=== PATIENT | female | born 1950 | race Caucasian/White ===

== ENCOUNTER → 2017-08-26 | Outpatient (REF) | payer BC, OTHER ==
[2017-08-26 11:38] LABS: IMMUNOGLOBULIN G 1220 MG/DL (681-1648); TOTAL PROTEIN 7.4 GM/DL (6.4-8.2)
[2017-08-27 12:27] LABS: ALBUMIN 4.09 GM/DL (3.29-5.55); ALBUMIN % 55.3 % (55.8-66.1)
[2017-08-31 08:06] LABS: FREE KAPPA LIGHT CHAINS SERUM 28.8 mg/L (3.3-19.4); FREE LAMBDA LIGHT CHAINS SERUM 14.4 mg/L (5.7-26.3); HEMOGLOBIN A 97.9 % (94.0-98.0)
== END ==
LOC: M LAB REF 10:49
PROVIDERS: ATTEND Internal Medicine Medical Oncology
DX: Z85.3 Personal history of malignant neoplasm of breast (principal); Z90.12 Acquired absence of left breast and nipple; Z17.0 Estrogen receptor positive status [ER+]; D64.9 Anemia, unspecified

== ENCOUNTER → 2019-08-17 | Outpatient (REF) | payer MEDICARE ==
[~2019-08-17] MED LIST: AZIT-12 PO; BISO10TA4 PO; CALC600C3 PO; CALC600T31 PO; LOSA100T8 PO; MULTCAP PO; OMEP20CA4 PO; PROBCAP14 PO
[2019-08-18 13:03] LABS: FERRITIN 205 NG/ML (8-252); IRON (FE) 37 UG/DL (50-170); PERCENT SATURATION 13.6 % (13.2-45.0); TOTAL IRON BINDING CAPACITY 272 UG/DL (250-450)
[2019-08-18 15:50] LABS: VITAMIN B12 LEVEL 665 PG/ML
[2019-08-18 15:51] LABS: FOLATE > 24.0 NG/ML
== END ==
LOC: M LAB REF 12:31
PROVIDERS: ATTEND Family Medicine
DX: D64.9 Anemia, unspecified (principal)

== ENCOUNTER → 2020-07-17 | Outpatient (REF) | payer MEDICARE ==
[~2020-07-17] MED LIST changes: +OMEP1CAP73 PO; -OMEP20CA4 PO
[2020-07-17 13:17] LABS: PERCENT SATURATION 19.3 % (13.2-45.0)
== END ==
LOC: M LAB REF 11:47
PROVIDERS: ATTEND Family Medicine
DX: D64.9 Anemia, unspecified (principal)

== ENCOUNTER → 2020-09-21 | Outpatient (REF) | payer MEDICARE ==
[~2020-09-21] MED LIST changes: +AMLO1TAB24 PO; +ATOR1TAB19 PO; +BISO10TA14 PO; +LOSA100T50 PO
[2020-09-21 18:14] LABS: AMYLASE 47 U/L (25-115); LIPASE 232 U/L (73-393)
== END ==
LOC: M LAB REF 16:46
PROVIDERS: ATTEND Physician Assistant Medical
DX: R10.12 Left upper quadrant pain (principal)

== ENCOUNTER 2020-09-22 08:32 | Emergency (ER) | payer MEDICARE ==
[~2020-09-22] VITALS: Ht 160 cm; Wt 74.1 kg
[~2020-09-22 08:32] MED LIST changes: -AMLO1TAB24 PO; -ATOR1TAB19 PO; -BISO10TA14 PO; -LOSA100T50 PO
[2020-09-22] MEDS ORDERED: ATOR1TAB19 PO (08:47)
[2020-09-22] MEDS ORDERED: AMLO1TAB24 PO (08:47)
[2020-09-22 09:28] LABS: EOS % 0.2 % (0.0-3.0); HEMATOCRIT 34.1 % (36.0-47.0); HEMOGLOBIN 11.5 g/dl (12.0-15.5); LYMPH % 19.8 % (24.0-44.0); MEAN CORPUSCULAR HEMOGLOBIN 30.3 pg (27.0-33.0); MEAN CORPUSCULAR HGB CONC 33.7 g/dl (32.0-36.5); MONO # 0.3 10^3/uL (0.0-0.8); MONO % 5.2 % (0.0-5.0); NEUTROPHILS # 3.6 10^3/uL (1.5-8.5); NEUTROPHILS % 74.6 % (36.0-66.0); PLATELET COUNT, AUTOMATED 260 10^3/uL (150-450); RED BLOOD COUNT 3.79 10^6/uL (4.00-5.40); WHITE BLOOD COUNT 4.8 10^3/uL (4.0-10.0)
[2020-09-22 10:10] LABS: BILIRUBIN,DIRECT 0.2 MG/DL (0.0-0.2); BILIRUBIN,TOTAL 0.4 MG/DL (0.2-1.0); CALCIUM LEVEL 9.8 MG/DL (8.8-10.2); CREATININE FOR GFR 1.23 MG/DL (0.55-1.30); GLOMERULAR FILTRATION RATE 46.2 (>45); POTASSIUM SERUM 3.1 MEQ/L (3.5-5.1); TOTAL PROTEIN 7.6 GM/DL (6.4-8.2)
[2020-09-22] MEDS ORDERED: LOSA100T50 PO (11:22)
[2020-09-22] MEDS ORDERED: BISO10TA14 PO (11:22)
[2020-09-22 12:00] VITALS: BP 120/65
== END 2020-09-22 12:09 | disposition home or self-care (01) ==
LOC: M ED 08:32
DX: K29.70 Gastritis, unspecified, without bleeding (principal); E87.1 Hypo-osmolality and hyponatremia; I10 Essential (primary) hypertension; K21.9 Gastro-esophageal reflux disease without esophagitis; E78.5 Hyperlipidemia, unspecified; Z88.0 Allergy status to penicillin; Z79.899 Other long term (current) drug therapy

== ENCOUNTER 2023-09-03 08:29 | Emergency (ER) | payer MEDICARE ==
[~2023-09-03] VITALS: Ht 157.5 cm; Wt 59.9 kg
[~2023-09-03 08:29] MED LIST changes: +AMLO1TAB24 PO; +ATOR1TAB19 PO; +BISO10TA14 PO; -BISO10TA4 PO; +BISO1TAB19 PO; +LOSA100T46 PO
[2023-09-03] MEDS ORDERED: BACTDSTA (08:40)
[2023-09-03] MEDS ORDERED: NS 1,000 ML IV ONE (09:00)
[2023-09-03 09:31] LABS: BASO % 0.2 % (0.0-1.0); EOS % 0.7 % (0.0-3.0); HEMATOCRIT 35.7 % (36.0-47.0); HEMOGLOBIN 12.2 g/dl (12.0-15.5); LYMPH # 1.3 10^3/uL (1.5-5.0); LYMPH % 31.7 % (24.0-44.0); MEAN CORPUSCULAR HEMOGLOBIN 30.7 pg (27.0-33.0); MEAN CORPUSCULAR HGB CONC 34.2 g/dl (32.0-36.5); MEAN CORPUSCULAR VOLUME 89.9 fl (80.0-96.0); MONO # 0.3 10^3/uL (0.0-0.8); MONO % 7.1 % (2.0-8.0); NEUTROPHILS # 2.5 10^3/uL (1.5-8.5); NEUTROPHILS % 60.3 % (36.0-66.0); PLATELET COUNT, AUTOMATED 251 10^3/uL (150-450); RED BLOOD COUNT 3.97 10^6/uL (4.00-5.40); WHITE BLOOD COUNT 4.1 10^3/uL (4.0-10.0)
[2023-09-03 10:01] LABS: ALBUMIN 3.6 G/DL (3.2-5.2); ALKALINE PHOSPHATASE 74 U/L (46-116); ALT/SGPT 24 U/L (7.0-40); AST/SGOT 33 U/L (<34); BILIRUBIN,DIRECT 0.2 MG/DL (<0.4); BILIRUBIN,TOTAL 0.6 MG/DL (0.3-1.2); BLOOD UREA NITROGEN 14 MG/DL (9-23); CALCIUM LEVEL 9.6 MG/DL (8.3-10.6); CARBON DIOXIDE LEVEL 22 MMOL/L (20-31); CHLORIDE LEVEL 99 MMOL/L (98-107); CREATININE FOR GFR 0.91 MG/DL (0.55-1.30); GLOMERULAR FILTRATION RATE > 60.0 (>39); GLUCOSE, FASTING 94 MG/DL (74-106); MONO SCRN NEGATIVE (NEGATIVE); POTASSIUM SERUM 4.5 MMOL/L (3.5-5.1); SODIUM LEVEL 131 MMOL/L (136-145); TOTAL PROTEIN 6.6 G/DL (5.7-8.2)
[2023-09-03] MEDS ORDERED: ISOVUE-370 76% 100ML VIAL As Ordered ONE (10:56)
[2023-09-03] MEDS ORDERED: BENZ200C70 PO (11:43)
[2023-09-03 11:55] VITALS: BP 150/82; TEMP 98.6; O2SAT 98
== END 2023-09-03 12:00 | disposition home or self-care (01) ==
LOC: M ED 08:29
DX: U07.1 COVID-19 (principal); I10 Essential (primary) hypertension; E78.5 Hyperlipidemia, unspecified; Z85.3 Personal history of malignant neoplasm of breast; Z79.899 Other long term (current) drug therapy; Z88.0 Allergy status to penicillin
CPT/HCPCS: 71046; 71275; 80048; 80076; 83605; 85025; 86308; 87486; 87581; 87633; 87798; 96360; 96361; 99284; Q9967